=== PATIENT | male | born 2000 | race Caucasian/White ===

== ENCOUNTER 2023-02-07 15:48 | Inpatient (IN) | payer OTHER ==
[2023-02-07] MEDS ORDERED: fentaNYL 50 mcg/mL 1 mL Vial ONE (16:24)
[2023-02-07] MEDS ORDERED: TETANUS, DIPHTHERIA TOX,ADULT (TDVAX) 0.5 ML VIAL IM ONE (16:24)
[2023-02-07] MEDS ORDERED: Boostrix 0.5 ML (Tdap) VIAL (>/=7 yrs of age) ONE (16:25)
[2023-02-07 16:40] LABS: #Basophils 0.1 thou/uL (0.0-0.2); #Eosinphils 0.2 thou/uL (0.0-0.7); #Monocytes 0.8 thou/uL (0.11-0.59); #Neutrophils 6.5 thou/uL (1.40-6.50); %Basophils 0.6 % (0.0-1.0); %Eosinophils 1.4 % (0.0-10.0); %Lymphocytes 28.2 % (28.0-48.0); %Neutrophils 61.5 % (31.0-61.0); Hematocrit 43.7 % (42.0-52.0); Hemoglobin 15.1 g/dL (14.0-18.0); Mean Corpuscular HGB CONC 34.6 g/dL (32.0-36.0); Mean Corpuscular Hemoglobin 27.9 pg (25.0-35.0); Mean Corpuscular Volume 80.8 fl (78.0-98.0); Mean Platelet Volume 8.7 fL (7.4-10.4); Platelet Count 287 10x3/uL (130-400); RBC Distribution Width 12.8 % (11.5-14.5); Red Blood Cell (RBC) Count 5.41 mill/uL (4.00-5.20); White Blood Cell (WBC) Count 10.6 10x3/uL (4.8-10.8)
[2023-02-07] MEDS ORDERED: CEFAZOLIN 2 GM VIAL ONE (16:55)
[2023-02-07 17:02] LABS: ALT (SGPT) 54 U/L (8-55); AST (SGOT) 30 U/L (5-34); Albumin 4.6 g/dL (3.5-5.0); Alkaline Phosphatase 54 U/L (50-130); Anion Gap 13 mmol/L (10-20); BUN (Urea Nitrogen) 16 mg/dL (8.9-20.6); Bilirubin, Total 0.4 mg/dL (0.2-1.2); Calc. Creatinine Clearance 0 mL/min (70-130); Calcium 9.5 mg/dL (7.8-10.44); Carbon Dioxide 25 mmol/L (22-29); Chloride 105 mmol/L (98-107); Estimated GFR 96; Globulin 3.1 g/dL (2.4-3.5); Glucose 106 mg/dL (70-105); Potassium 3.9 mmol/L (3.5-5.1); Protein, Total 7.7 g/dL (6.0-8.3); Sodium 139 mmol/L (136-145)
[2023-02-07] MEDS ORDERED: Morphine 4 MG/ML VIAL ONE ×2 (17:20→19:44)
[2023-02-07] MEDS ORDERED: Ketorolac Tromethamine 30 MG/ML VIAL ONE (17:20)
[2023-02-07] MEDS ORDERED: PROPOFOL 20 ML ONE ×2 (17:22→17:56)
[2023-02-07] MEDS ORDERED: Glucagon 1 MG/ML KIT IM PRN (18:45)
[2023-02-07] MEDS ORDERED: Acetaminophen 325 MG TAB PO SCH (18:45)
[2023-02-07] MEDS ORDERED: Ipratropium/Albuterol 3 ML NEB NEB PRN (18:45)
[2023-02-07] MEDS ORDERED: Dextrose 5% in Water 1,000 ML IV PRN (18:45)
[2023-02-07] MEDS ORDERED: Dextrose 50% Abboject 50 ML SYRINGE SLOW IVP PRN (18:45)
[2023-02-07] MEDS ORDERED: hydrALAZINE 20 MG/ML VIAL SLOW IVP PRN (18:45)
[2023-02-07] MEDS ORDERED: Morphine 2 MG/ML VIAL SLOW IVP PRN (18:45)
[2023-02-07] MEDS ORDERED: Ondansetron PF 4 MG/2 ML Vial IVP PRN (18:45)
[2023-02-07] MEDS: traMADol HCl 50 MG TAB PO SCH (21:39)
[2023-02-07] MEDS: Famotidine 20 MG TAB PO SCH (21:40)
[2023-02-07] MEDS: Acetaminophen 500 MG TAB PO SCH (21:40)
[2023-02-07] MEDS: Sodium Chloride 0.9% 1,000 ML IV SCH (21:41)
[2023-02-08] MEDS ORDERED: Cyclobenzaprine 10 MG TAB PO SCH ×2 (00:45→09:00)
[2023-02-08] MEDS: traMADol HCl 50 MG TAB PO SCH ×4 (01:43→18:10)
[2023-02-08] MEDS: Sodium Chloride 0.9% 1,000 ML IV SCH ×3 (01:44→12:53)
[2023-02-08 01:48] VITALS: BMI 33.0
[2023-02-08] MEDS: Acetaminophen 500 MG TAB PO SCH ×3 (02:00→14:00)
[2023-02-08] MEDS ORDERED: Cyclobenzaprine 10 MG TAB PO PRN (03:55)
[2023-02-08] MEDS: Famotidine 20 MG TAB PO SCH (09:51)
[2023-02-08] MEDS ORDERED: fentaNYL 50 mcg/mL 1 mL Vial ONE ×5 (12:03→14:42)
[2023-02-08] MEDS ORDERED: Famotidine/PF 20 mg/2ml Vial ONE (12:03)
[2023-02-08] MEDS ORDERED: Midazolam HCl 2 mg/2 ml Vial ONE (12:03)
[2023-02-08] MEDS ORDERED: Sodium Chloride 0.9% 100 ML ONE (12:04)
[2023-02-08] MEDS ORDERED: CEFAZOLIN 2 GM VIAL ONE (12:04)
[2023-02-08] MEDS ORDERED: Lidocaine 1% PF 5 ML VIAL ONE (12:14)
[2023-02-08] MEDS ORDERED: Ketorolac Tromethamine 30 MG/ML VIAL ONE (12:14)
[2023-02-08] MEDS ORDERED: PROPOFOL 200 MG/20 ML VIAL ONE (12:14)
[2023-02-08] MEDS ORDERED: Ondansetron PF 4 MG/2 ML Vial ONE (12:14)
[2023-02-08] MEDS ORDERED: Metoclopramide HCl 10 MG/2 ML VIAL ONE (12:14)
[2023-02-08] MEDS ORDERED: Dexamethasone 20 MG/5 ML VIAL ONE (12:14)
[2023-02-08] MEDS ORDERED: Meperidine HCl/PF 25 MG/ML VIAL SLOW IVP PRN (13:36)
[2023-02-08] MEDS ORDERED: Promethazine HCl 25 MG/ML VIAL IM PRN (13:36)
[2023-02-08] MEDS ORDERED: Ondansetron HCl/PF 4 MG/2 ML Vial IVP PRN (13:36)
[2023-02-08] MEDS ORDERED: HYDROcodone/Acetaminophen 10/325 mg Tablet PO PRN (14:15)
[2023-02-08] MEDS ORDERED: Morphine 4 MG/ML VIAL SLOW IVP PRN (14:15)
[2023-02-08] MEDS ORDERED: ANTIBIOTICS IVPB PRN (14:23)
[2023-02-08] MEDS ORDERED: Bupivacaine HCl 0.5%/Epinephrine 1:200,000/PF 30 ml Vial ONE (15:20)
[2023-02-08] MEDS ORDERED: Ropivacaine 0.5% HCl/PF (150 MG/30 ML VIAL) ONE (15:20)
[2023-02-08 17:00] VITALS: BP 143/77; TEMP 98
== END 2023-02-08 19:38 | disposition home or self-care (01) | DRG 494 ==
LOC: ERS 15:48 → SURG A 18:45
PROVIDERS: ADMIT Surgery; ATTEND Surgery
PROC: 0QSG04Z Reposition Right Tibia with Internal Fixation Device, Open Approach (ICD-10-PCS; principal; 2023-02-08)
PROC: BQ1GZZZ Fluoroscopy of Right Ankle (ICD-10-PCS; 2023-02-08)
PROC: 0QSJ04Z Reposition Right Fibula with Internal Fixation Device, Open Approach (ICD-10-PCS; 2023-02-08)
DX: S82.841A Displaced bimalleolar fracture of right lower leg, initial encounter for closed fracture (principal); S82.831A Other fracture of upper and lower end of right fibula, initial encounter for closed fracture; S82.51XA Displaced fracture of medial malleolus of right tibia, initial encounter for closed fracture; S93.04XA Dislocation of right ankle joint, initial encounter; R00.0 Tachycardia, unspecified
CPT/HCPCS: 80053; 85025; 85046; 90714; 90715; C1713; C1874; J1100; J1885; J2250; J2270; J2405; J2704; J2765; J3010; J3490; J7050; S0028